=== PATIENT | female | born 1945 | race Caucasian/White ===

== ENCOUNTER 2018-04-29 19:06 | Observation (INO) | payer MEDICARE, SELFPAY ==
[2018-04-29] VITALS (23 sets, daily range): BP systolic 130–171; BP diastolic 49–90; PULSE 73–91; RESP 13–27; TEMP 36.5–37.1; O2SAT 95–100
--- NOTE | 2018-04-29 19:16 | ED.GENADUL_ITS ---
Discharge Plan Discharge Details Chief Complaint: Seizure Reason For Visit: [facility] Primary Care Provider: Mavis,Local ED Provider: Kaylee Null Home Meds and New Rx's Prescriptions: No Action clonazepam 0.5 mg Tablet 0.25 mg PO .QHS RF: 0 lovastatin 40 mg Tablet 40 mg PO DAILY RF: 0 amlodipine 5 mg Tablet 5 mg PO DAILY RF: 0 aspirin [Aspirin Low Dose] 81 mg Tablet,Delayed Release (Dr/Ec) 81 mg PO DAILY RF: 0 ferrous sulfate 325 mg (65 mg iron) Tablet 325 mg PO DAILY RF: 0 metformin 1,000 mg Tablet 1,000 mg PO BID RF: 0 irbesartan-hydrochlorothiazide 300-12.5 mg Tablet 1 tab PO DAILY RF: 0 folic acid 1 mg Tablet 1 mg PO DAILY RF: 0 escitalopram oxalate 10 mg Tablet 5 mg PO DAILY RF: 0 levothyroxine 100 mcg Capsule 100 mcg PO DAILY RF: 0 Medical Decision Making Samatnha Garza is a 72-year-old woman with a history of insulin dependent diabetes presenting to the emergency department with loss of consciousness with shaking at a restaurant without prodrome or postictal state just prior to arrival, now asymptomatic. On exam patient is well and nontoxic appearing. She has benign cardiopulmonary exam and a benign neurologic exam. Concern for new seizure versus syncope of unknown etiology, possible head, C-spine trauma. Exam/history not consistent with sepsis, acute aortic pathology at this time. Plan for EKG, chest x-ray, CT head, C-spine, screening labs, telemetry, IV fluid hydration. Will monitor and reassess. EKG shows long QT at 488. Chest x-ray, CT had nondiagnostic. Mild hypokalemia. Elevated d-dimer, plan for CT chest for rule out PE. Anticipate admission. CT negative for PE. Patient continues to be asymptomatic. Plan for admission. Medical Records Medical records reviewed: Yes I reviewed the patient's medical records. Imaging Data Radiologic Study: Attestation: I personally reviewed and interpreted this imaging study as follows: Radiologist's impression: CT Chest: FINDINGS: Pulmonary arteries: See Adrenals Finding. Aorta: Mild atherosclerotic calcification of the aorta. Other arteries: Small rounded calcified structure in the splenic hilum likely represents a calcified splenic artery aneurysm measuring 1.0 cm (series 5 image 98). Lungs: No focal pulmonary consolidation. Pleural space: Normal. No pneumothorax. No pleural effusion. Heart: Normal heart size without pericardial effusion. There are coronary artery calcifications. Gallbladder and bile ducts: Cholelithiasis. No gallbladder wall thickening or pericholecystic fluid. Adrenals: Mild nodular thickening of the medial limb of the left adrenal gland without discrete nodule. No evidence of pulmonary embolism. Lymph nodes: Scattered nonenlarged mediastinal lymph nodes. No enlarged nodes. Bones/joints: Unremarkable. No acute fracture. Soft tissues: Unremarkable. IMPRESSION: 1. No evidence of pulmonary embolism. No acute pulmonary findings. 2. Cholelithiasis without CT evidence of acute cholecystitis. 3. 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 Brain: FINDINGS: Brain: Mild prominence of the CSF spaces and sulci in keeping with mild age-related involutional changes. Nonspecific patchy and confluent periventricular white matter changes, likely related to chronic microvascular ischemic disease. No intracranial hemorrhage, mass effect, or midline shift. No evidence of large territorial infarction. Right occipital scalp swelling without underlying skull fracture. Bilateral maxillary sinus and mild frontal sinus mucosal thickening. Ventricles: Normal. No ventriculomegaly. Bones/joints: See Brain Finding. Sinuses: See Brain Finding. Mastoid air cells: Normal as visualized. No mastoid effusion. Soft tissues: Normal. IMPRESSION: 1. No acute intracranial findings. 2. Right occipital scalp swelling without underlying skull fracture. 3. Mild age-related involutional changes. Nonspecific white matter changes, likely related to chronic microvascular ischemic disease. 4. Mild paranasal sinus disease. CT Cervical Spine: FINDINGS: Vertebrae: Mild multilevel degenerative changes of the spine with straightening of cervical lordosis. Degenerative changes are worst at C5-C6 and C6-C7. Discs/Spinal canal/Neural foramina: No spinal stenosis. No neural foraminal narrowing. Soft tissues: Right occipital scalp swelling. Lungs: Lung apices are normal. Vasculature: Atherosclerotic calcification of the aorta. IMPRESSION: No acute fracture or malalignment. Mild multilevel degenerative changes of the cervical spine. CXR: FINDINGS: Lungs: Unremarkable. No consolidation. Pleural space: Unremarkable. No pleural effusion. No pneumothorax. Heart/Mediastinum: Unremarkable. No cardiomegaly. Bones/joints: Unremarkable. IMPRESSION: No acute cardiopulmonary findings. Lab Data Lab results reviewed: Yes I reviewed the patient's lab results. 04/29/18 20:17 Urine - Reflex from Ua Urine Culture - Pending Laboratory Tests Range/Units 04/29/18 04/29/18 04/29/18 19:30 19:30 19:30 WBC (4.4-10.8) k/cumm 7.17 RBC (4.00-5.20) m/cumm 4.10 Hgb (12.0-15.5) g/dL 11.8 L Hct (36.0-46.0) % 35.8 L MCV (80-95) fL 87.3 MCH (27.0-33.0) pg 28.8 MCHC (32.0-36.0) g/dL 33.0 RDW (11.7-14.6) % 13.1 Plt Count (130-400) x1000/uL 278 MPV (8.0-11.0) fL 10.0 Immature Gran % 0.1 Neutrophils % 54.6 Lymphocytes % 35.1 Monocytes % 7.0 Eosinophils % 2.5 Basophils % 0.7 Absolute Neutrophils (1.2-6.7) k/cumm 3.91 Absolute Lymphocytes (1.2-3.4) k/cumm 2.52 Absolute Monocytes (0.11-0.7) k/cumm 0.50 Absolute Eosinophils (0.0-0.7) k/cumm 0.18 Absolute Basophils (0.0-0.2) k/cumm 0.05 D-Dimer (<500) ng/mlFEU Sodium (136-145) mmol/L 141 Potassium (3.5-5.1) mmol/L 3.3 L Chloride (98-107) mmol/L 102 Carbon Dioxide (21.0-32.0) mmol/L 27.6 Anion Gap (3-11) mmol/L 11.4 H BUN (7-18) mg/dL 16 Creatinine (0.55-1.02) mg/dL 1.06 H Estimated GFR/1.73 m2 (mL/min/1.73m2) 50.96 Glucose (70-100) mg/dL 83 Calcium (8.5-10.1) mg/dL 8.7 Total Bilirubin (0.2-1.0) mg/dL 0.3 AST (15-37) U/L 17 ALT (12-78) U/L 21 Alkaline Phosphatase (46-116) U/L 78 Troponin I (0.00-0.06) ng/mL < 0.02 Total Protein (6.4-8.2) g/dL 7.2 Albumin (3.4-5.0) g/dL 3.7 TSH (0.358-3.74) uIU/mL 2.41 Urine Color (Yellow) Urine Clarity Urine pH (5-8) Ur Specific [place] (1.005-1.025) Urine Protein (Negative) mg/dL Urine Ketones (Negative) mg/dL Urine Blood (Negative) Urine Nitrite (Negative) Urine Bilirubin (Negative) Urine Urobilinogen (Up TO 0.2) EU/dL Ur Leukocyte Esterase (Negative) Urine RBC (0-2) Urine WBC (0-5) HPF Ur Epithelial Cells (Negative) HPF Urine Crystals (Negative) HPF Urine Bacteria (Negative) HPF Urine Casts (Negative) LPF Urine Mucus (Negative) Urine Other (Negative) Ur Culture Indicated? Urine Glucose (Negative) mg/dL Range/Units 04/29/18 04/29/18 04/29/18 19:30 20:17 23:30 WBC (4.4-10.8) k/cumm RBC (4.00-5.20) m/cumm Hgb (12.0-15.5) g/dL Hct (36.0-46.0) % MCV (80-95) fL MCH (27.0-33.0) pg MCHC (32.0-36.0) g/dL RDW (11.7-14.6) % Plt Count (130-400) x1000/uL MPV (8.0-11.0) fL Immature Gran % Neutrophils % Lymphocytes % Monocytes % Eosinophils % Basophils % Absolute Neutrophils (1.2-6.7) k/cumm Absolute Lymphocytes (1.2-3.4) k/cumm Absolute Monocytes (0.11-0.7) k/cumm Absolute Eosinophils (0.0-0.7) k/cumm Absolute Basophils (0.0-0.2) k/cumm D-Dimer (<500) ng/mlFEU 1163 H Sodium (136-145) mmol/L Potassium (3.5-5.1) mmol/L Chloride (98-107) mmol/L Carbon Dioxide (21.0-32.0) mmol/L Anion Gap (3-11) mmol/L BUN (7-18) mg/dL Creatinine (0.55-1.02) mg/dL Estimated GFR/1.73 m2 (mL/min/1.73m2) Glucose (70-100) mg/dL Calcium (8.5-10.1) mg/dL Total Bilirubin (0.2-1.0) mg/dL AST (15-37) U/L ALT (12-78) U/L Alkaline Phosphatase (46-116) U/L Troponin I (0.00-0.06) ng/mL Cancelled Total Protein (6.4-8.2) g/dL Albumin (3.4-5.0) g/dL TSH (0.358-3.74) uIU/mL Urine Color (Yellow) Yellow Urine Clarity Clear Urine pH (5-8) 7.0 Ur Specific [place] (1.005-1.025) 1.015 Urine Protein (Negative) mg/dL Negative Urine Ketones (Negative) mg/dL Negative Urine Blood (Negative) Negative Urine Nitrite (Negative) Negative Urine Bilirubin (Negative) Negative Urine Urobilinogen (Up TO 0.2) EU/dL 1.0 H Ur Leukocyte Esterase (Negative) Small H Urine RBC (0-2) Negative Urine WBC (0-5) HPF 3-5 Ur Epithelial Cells (Negative) HPF Negative Urine Crystals (Negative) HPF Negative Urine Bacteria (Negative) HPF Negative Urine Casts (Negative) LPF Negative Urine Mucus (Negative) Negative Urine Other (Negative) Negative Ur Culture Indicated? Yes Urine Glucose (Negative) mg/dL Negative ECG Data Attestation: I personally reviewed and interpreted this ECG (s) as follows: Interpretation: EKG shows normal sinus rhythm at 86 with occasional PVC, normal axis, no acute ischemic changes, QTC 488 HPI General Mode of arrival: EMS . Date/Time Provider Initiated Documentation: 04/29/18 19:15 . Limitations to Documentation: no limitations . Information obtained by: patient, EMS, RN notes reviewed and old records reviewed . HPI Narrative: Samantha Garza is a 72-year-old woman with a history of insulin dependent diabetes presenting to the emergency department with apparent seizure. History is provided by the patient and by EMS. EMS reports that patient was at a restaurant eating dinner when she became unresponsive and had generalized body shaking. She was unresponsive for approximately 1 minute. She did fall to the ground from standing. Per EMS, there was no postictal period. She had 2 episodes of vomiting in the restaurant directly after she regained responsiveness. She has never had a seizure in the past. She reports that she has been feeling very well in her usual state of health throughout the day. She remembers being in the restaurant, and then remembers vomiting. She does not recall any prodromal symptoms. Patient received 4 mg of Zofran from EMS in the field. Patient did have one further episode of vomiting in the emergency department. In the emergency department patient reports feeling well in her usual state of health. She is asymptomatic. Never with similar symptoms in the past. No recent illnesses. No recent travel. No changes to her medications. She denies alcohol or recreational drug use. Fingerstick was 112 in the field. Related Data Home Medications Medication Instructions Recorded Confirmed amlodipine 5 mg PO DAILY 04/29/18 04/29/18 aspirin [Aspirin Low Dose] 81 mg PO DAILY 04/29/18 04/29/18 clonazepam 0.25 mg PO .QHS 04/29/18 04/29/18 escitalopram oxalate 5 mg PO DAILY 04/29/18 04/29/18 ferrous sulfate 325 mg PO DAILY 04/29/18 04/29/18 folic acid 1 mg PO DAILY 04/29/18 04/29/18 irbesartan-hydrochlorothiazide 1 tab PO DAILY 04/29/18 04/29/18 levothyroxine 100 mcg PO DAILY 04/29/18 04/29/18 lovastatin 40 mg PO DAILY 04/29/18 04/29/18 metformin 1,000 mg PO BID 04/29/18 04/29/18 Allergies Allergy/AdvReac Type Severity Reaction Status Date / Time No Known Allergies Allergy Unverified 04/29/18 19:50 General Stated Complaint: Seizure NACHO: 2 Review of Systems Review of Systems Constitutional: denies fevers Eyes: denies eye pain ENT: denies facial pain, dental pain, sore throat Cardiovascular: denies chest pain, edema, palpitations Respiratory: denies SOB, cough GI: denies abdominal pain, diarrhea, reports vomiting : denies flank pain MSK: denies back pain, neck pain, arthralgias, myalgias Skin: denies rash Neuro: denies headaches, lightheadedness, weakness, n/t PFSH Diabetes (Chronic) Medical History Diabetes (Chronic) Social History Smoking/Tobacco Use Status: Never alcohol intake: current alcohol intake frequency: holidays/special occasions only Social History Smoking/Tobacco Use Status: Never alcohol intake: current alcohol intake frequency: holidays/special occasions only Exam Narrative Exam Narrative: Constitutional: well and [id number], pleasant, conversing normally HENT: head normocephalic, 3 x 4 cm hematoma right occiput, mucous membranes moist Eyes: conjunctiva normal, sclera normal, pupils 3mm b/l, extraocular movements intact Neck: no stridor, normal ROM, trachea midline, nontender to palpation Chest: normal inspection Resp: normal work of breathing, LCTAB Cardio: normal rate, normal rhythm, no murmur appreciated GI: abdomen soft, non-tender, non-distended Back: normal inspection, no rash Skin: warm, dry, normal color, no rash Neuro: alert, not altered, cranial nerves II through XII intact, motor 5 out of 5 throughout, normal tone Ext: no edema Psych: normal mood, normal affect, normal behavior Course Vital Signs Temperature 36.5 C 04/29/18 19:12 Pulse 88 04/29/18 19:12 Respiratory Rate 21 04/29/18 19:12 Blood Pressure 157/90 H 04/29/18 19:12 Pulse Oximetry 99 04/29/18 19:12 Temperature 36.5 C 04/29/18 19:12 Temperature Source Tympanic 04/29/18 19:12 Pulse 88 04/29/18 19:12 Respiratory Rate 21 04/29/18 19:12 Blood Pressure 157/90 H 04/29/18 19:12 Blood Pressure Position Sitting 04/29/18 19:12 Pulse Oximetry 99 04/29/18 19:12 Oxygen Delivery Method Room Air 04/29/18 19:12 Oxygen Flow Rate 0 04/29/18 19:12 Pain Level 0 04/29/18 19:12
--- NOTE | 2018-04-29 20:06 | DI.RAD_ITS ---
SYMPTOM/DIAGNOSIS: ? SYNCOPE PA AND LATERAL CHEST: The heart size is normal. The aorta is mildly tortuous and shows some calcification. The lungs appear clear. IMPRESSION: No acute abnormality.
[2018-04-29 20:07] LABS: Abs Immature Grans 0.01 k/cumm (0.0-0.09); Absolute Basophil Count 0.05 k/cumm (0.0-0.2); Absolute Eosinophil Count 0.18 k/cumm (0.0-0.7); Absolute Lymphocyte Count 2.52 k/cumm (1.2-3.4); Absolute Neutrophil Count 3.91 k/cumm (1.2-6.7); Basophils % 0.7; Eosinophils % 2.5; HCT 35.8 % (36.0-46.0); HGB 11.8 g/dL (12.0-15.5); Immature Grans % 0.1; Lymphocytes % 35.1; Mean Corpuscular Hemoglobin 28.8 pg (27.0-33.0); Mean Corpuscular Volume 87.3 fL (80-95); Neutrophils % 54.6; Platelet Count 278 x1000/uL (130-400); RBC Distribution Width 13.1 % (11.7-14.6); White Blood Cell Count 7.17 k/cumm (4.4-10.8)
--- NOTE | 2018-04-29 20:11 | DI.CT_ITS ---
SYMPTOM/DIAGNOSIS: TRAUMA, SEIZURE VS SYNCOPE ? NONCONTRAST HEAD CT: No intracranial hemorrhage or skull fracture is seen There is soft tissue swelling over the right occipital region. There is no evidence of infarct or mass. The ventricles are normal in size. There is mild sinus mucosal thickening. IMPRESSION: Right occipital soft tissue swelling. No evidence of fracture or other acute abnormality. CT CERVICAL SPINE: There are degenerative disc changes and facet degenerative changes. There is no evidence of fracture. The alignment appears normal. No paraspinal hematoma seen. No pneumothorax is seen at the lung apices. IMPRESSION: Degenerative changes. No acute abnormality.
[2018-04-29 20:20] LABS: ALT 21 U/L (12-78); AST 17 U/L (15-37); Albumin 3.7 g/dL (3.4-5.0); Alkaline Phosphatase 78 U/L (46-116); Anion Gap 11.4 mmol/L (3-11); BUN 16 mg/dL (7-18); Bilirubin, Total 0.3 mg/dL (0.2-1.0); CO2 27.6 mmol/L (21.0-32.0); CREATININE 1.06 mg/dL (0.55-1.02); Calcium 8.7 mg/dL (8.5-10.1); Chloride 102 mmol/L (98-107); Estimated GFR 50.96 (mL/min/1.73m2); Glucose 83 mg/dL (70-100); Potassium 3.3 mmol/L (3.5-5.1); Sodium 141 mmol/L (136-145); Total Protein 7.2 g/dL (6.4-8.2)
--- NOTE | 2018-04-29 20:28 | DI.VRAD_ITS ---
EXAM: XR Chest, 2 Views EXAM DATE/TIME: 04/29/2018 7:23 PM CLINICAL HISTORY: 72 years old, female; Signs and symptoms; Other: Sycope; Patient HX: ? Syncope TECHNIQUE: XR of the chest, 2 views. COMPARISON: No relevant prior studies available. FINDINGS: Lungs: Unremarkable. No consolidation. Pleural space: Unremarkable. No pleural effusion. No pneumothorax. Heart/Mediastinum: Unremarkable. No cardiomegaly. Bones/joints: Unremarkable. IMPRESSION: No acute cardiopulmonary findings. Dictated and Authenticated by: Renetta Romero MD. Ordering:BLAS MARCANO MD
[2018-04-29 20:31] LABS: TSH (W/Ref FT4) 2.41 uIU/mL (0.358-3.74); Troponin I < 0.02 ng/mL (0.00-0.06)
[2018-04-29 20:47] LABS: D-Dimer 1163 ng/mlFEU (<500)
[2018-04-29 20:49] LABS: Bilirubin Negative (Negative); Blood Negative (Negative); Clarity Clear; Glucose Negative (Negative); Ketones Negative (Negative); Leukocyte Esterase Small (Negative); Nitrite Negative (Negative); Specific Gravity 1.015 (1.005-1.025)
[2018-04-29 20:57] LABS: Bacteria Negative HPF (Negative); C & S Indicated? Yes; Casts Negative LPF (Negative); Crystals Negative HPF (Negative); Epithelial Cells Negative HPF (Negative); Mucus Negative (Negative); Other Cells Negative (Negative); RBC Negative (0-2)
--- NOTE | 2018-04-29 21:00 | DI.VRAD_ITS ---
EXAM: CT Head Without Contrast EXAM DATE/TIME: 04/29/2018 7:32 PM CLINICAL HISTORY: 72 years old, female; Injury or trauma; Fall; Initial encounter; Sprain or strain; Sprain or strain, cervical ligaments; Patient HX: Trauma, seizure vs. Syncope. TECHNIQUE: Axial computed tomography images of the head/brain without contrast. All CT scans at this facility use at least one of these dose optimization techniques: automated exposure control; mA and/or kV adjustment per patient size (includes targeted exams where dose is matched to clinical indication); or iterative reconstruction. Coronal and sagittal reformatted images were created and reviewed. COMPARISON: No relevant prior studies available. FINDINGS: Brain: Mild prominence of the CSF spaces and sulci in keeping with mild age-related involutional changes. Nonspecific patchy and confluent periventricular white matter changes, likely related to chronic microvascular ischemic disease. No intracranial hemorrhage, mass effect, or midline shift. No evidence of large territorial infarction. Right occipital scalp swelling without underlying skull fracture. Bilateral maxillary sinus and mild frontal sinus mucosal thickening. Ventricles: Normal. No ventriculomegaly. Bones/joints: See Brain Finding. Sinuses: See Brain Finding. Mastoid air cells: Normal as visualized. No mastoid effusion. Soft tissues: Normal. IMPRESSION: 1. No acute intracranial findings. 2. Right occipital scalp swelling without underlying skull fracture. 3. Mild age-related involutional changes. Nonspecific white matter changes, likely related to chronic microvascular ischemic disease. 4. Mild paranasal sinus disease. EXAM: CT Cervical Spine Without Contrast EXAM DATE/TIME: 04/29/2018 7:32 PM CLINICAL HISTORY: 72 years old, female; Injury or trauma; Fall; Initial encounter; Sprain or strain; Sprain or strain, cervical ligaments; Patient HX: Trauma, seizure vs. Syncope. TECHNIQUE: Axial computed tomography images of the cervical spine without intravenous contrast. All CT scans at this facility use at least one of these dose optimization techniques: automated exposure control; mA and/or kV adjustment per patient size (includes targeted exams where dose is matched to clinical indication); or iterative reconstruction. Coronal and sagittal reformatted images were created and reviewed. COMPARISON: No relevant prior studies available. FINDINGS: Vertebrae: Mild multilevel degenerative changes of the spine with straightening of cervical lordosis. Degenerative changes are worst at C5-C6 and C6-C7. Discs/Spinal canal/Neural foramina: No spinal stenosis. No neural foraminal narrowing. Soft tissues: Right occipital scalp swelling. Lungs: Lung apices are normal. Vasculature: Atherosclerotic calcification of the aorta. IMPRESSION: No acute fracture or malalignment. Mild multilevel degenerative changes of the cervical spine. Dictated and Authenticated by: Renetta Romero MD. Ordering:BLAS MARCANO MD
--- NOTE | 2018-04-29 21:42 | DI.CT_ITS ---
SYMPTOM/DIAGNOSIS: SYNCOPE, ELEVATED D-DIMER CHEST CT FOR PULMONARY EMBOLISM: CT angiography was performed with multi slice acquisition and multi planar and 3D reconstruction. No pulmonary emboli or aortic dissection is seen. There are some atherosclerotic changes of the aorta but no evidence of an aneurysm. No infiltrate pleural or pericardial effusion seen. A calcified stone is seen in the gallbladder. No biliary dilatation. The visualized portions of the liver, spleen, and pancreas are unremarkable. A small aneurysm is noted of the splenic artery. Osteophytes are noted in the thoracic spine. IMPRESSION: No evidence of pulmonary emboli or other acute abnormality.
[2018-04-29] MEDS: Omnipaque 350 MG/ML 100 ML BTL 74 ML IJ (21:47)
--- NOTE | 2018-04-29 22:01 | HPE_ITS ---
Date of service: 04/29/18 Time of Service: 21:57 Assessment and Plan (1) Spell of altered consciousness: Current visit: Yes Status: Acute Spell, seizure versus syncope the the immediately preceding behavioral changes prior to the loss of consciousness along, obviously, with the clonic activity would make seizure in my opinion the leading diagnostic possibility here. Arguing against this perhaps is that there was no clear postictal state. Complicating the matter further is that there was evident head trauma which could have introduced a second factor. I would monitor on telemetry over, institute seizure precautions and, if no diagnosis forthcoming, proceed with MRI and EEG. We will otherwise continue usual medications as is. History of Present Illness Chief Complaint: Spell Narrative: Patient is a 72-year-old female who suffered a spell at the restaurant this evening she had been in her usual state of health. At the end of the meal she was handed the bill and started asking where the total was. This was considered odd by her as the total was clearly written on the bill she then started looking around at the ceiling in a distracted sort of way. She then stood up and fell to the floor. On the floor she had rhythmic jerking motions of the extremities lasting approximately a minute there was no tongue biting and no urinary incontinence when she came to she vomited and thereafter she was more or less alert though not very talkative, but was able to state her name and where she was clearly she was brought to the emergency room. In the emergency room head CT and EKG unremarkable. She was admitted for further evaluation and management. Patient is unable to provide any history at all, the first thing she remembers was being on the floor. The above history was provided by her who was present at the scene. Past medical history: Hypertension diabetes hypothyroid depression. Allergies: None known. Medications: Norvasc 5 daily, aspirin 81 daily, Klonopin 0.25 at bedtime, citalopram 5 daily, iron 325 daily, folic acid 1 mg daily, losartan/ hydrochlorothiazide daily Synthroid 100 mcg daily lovastatin 40 daily metformin 1000 twice daily Physical exam: Blood pressure 166/55, pulse 78 respiration 13. There HEENT there is an occipital abrasion at approximately 4 cm hematoma neck supple. Lungs clear. Heart regular rate and rhythm without murmurs rubs or gallops. Abdomen is soft and nontender. Pelvic and rectal exams deferred. Extremities without cyanosis clubbing or edema, pulses 2+ and equal. Neurological exam patient is alert and oriented x3. Extraocular movements intact, pupils equal round and reactive to light. No facial asymmetry motor exam 5/5 throughout. When Lab White count 7.1, hematocrit 35 platelet 278 d-dimer 1163 sodium 141 potassium 3.3 chloride 102 bicarb 27 BUN 16 creatinine 1.0 glucose 83 troponin negative. EKG shows normal sinus rhythm, within normal limits except for a slightly prolonged QTC at [address] unremarkable Review of Systems Review of Systems All systems reviewed & are unremarkable except as noted in HPI and below PFSH Diabetes (Chronic) Medical History Diabetes (Chronic) Social History Smoking/Tobacco Use Status: Never alcohol intake: current alcohol intake frequency: holidays/special occasions only Social History Smoking/Tobacco Use Status: Never alcohol intake: current alcohol intake frequency: holidays/special occasions only Meds Home Medications Medication Instructions Recorded Confirmed Type amlodipine 5 mg PO DAILY 04/29/18 04/29/18 History aspirin [Aspirin Low Dose] 81 mg PO DAILY 04/29/18 04/29/18 History clonazepam 0.25 mg PO .QHS 04/29/18 04/29/18 History escitalopram oxalate 5 mg PO DAILY 04/29/18 04/29/18 History ferrous sulfate 325 mg PO DAILY 04/29/18 04/29/18 History folic acid 1 mg PO DAILY 04/29/18 04/29/18 History irbesartan-hydrochlorothiazide 1 tab PO DAILY 04/29/18 04/29/18 History levothyroxine 100 mcg PO DAILY 04/29/18 04/29/18 History lovastatin 40 mg PO DAILY 04/29/18 04/29/18 History metformin 1,000 mg PO BID 04/29/18 04/29/18 History Allergies Allergy/AdvReac Type Severity Reaction Status Date / Time No Known Allergies Allergy Unverified 04/29/18 19:50 Exam Narrative Exam Narrative: per hpi Results Labs : 04/29/18 19:30 04/29/18 19:30 Laboratory Results - last 24 hr 04/29/18 04/29/18 04/29/18 19:30 19:30 19:30 WBC 7.17 RBC 4.10 Hgb 11.8 L Hct 35.8 L MCV 87.3 MCH 28.8 MCHC 33.0 RDW 13.1 Plt Count 278 MPV 10.0 Immature Gran % 0.1 Neutrophils % 54.6 Lymphocytes % 35.1 Monocytes % 7.0 Eosinophils % 2.5 Basophils % 0.7 Absolute Neutrophils 3.91 Absolute Lymphocytes 2.52 Absolute Monocytes 0.50 Absolute Eosinophils 0.18 Absolute Basophils 0.05 D-Dimer Sodium 141 Potassium 3.3 L Chloride 102 Carbon Dioxide 27.6 Anion Gap 11.4 H BUN 16 Creatinine 1.06 H Estimated GFR/1.73 m2 50.96 Glucose 83 Calcium 8.7 Total Bilirubin 0.3 AST 17 ALT 21 Alkaline Phosphatase 78 Troponin I < 0.02 Total Protein 7.2 Albumin 3.7 TSH 2.41 Urine Color Urine Clarity Urine pH Ur Specific [place] Urine Protein Urine Ketones Urine Blood Urine Nitrite Urine Bilirubin Urine Urobilinogen Ur Leukocyte Esterase Urine RBC Urine WBC Ur Epithelial Cells Urine Crystals Urine Bacteria Urine Casts Urine Mucus Urine Other Ur Culture Indicated? Urine Glucose 04/29/18 04/29/18 19:30 20:17 WBC RBC Hgb Hct MCV MCH MCHC RDW Plt Count MPV Immature Gran % Neutrophils % Lymphocytes % Monocytes % Eosinophils % Basophils % Absolute Neutrophils Absolute Lymphocytes Absolute Monocytes Absolute Eosinophils Absolute Basophils D-Dimer 1163 H Sodium Potassium Chloride Carbon Dioxide Anion Gap BUN Creatinine Estimated GFR/1.73 m2 Glucose Calcium Total Bilirubin AST ALT Alkaline Phosphatase Troponin I Total Protein Albumin TSH Urine Color Yellow Urine Clarity Clear Urine pH 7.0 Ur Specific [place] 1.015 Urine Protein Negative Urine Ketones Negative Urine Blood Negative Urine Nitrite Negative Urine Bilirubin Negative Urine Urobilinogen 1.0 H Ur Leukocyte Esterase Small H Urine RBC Negative Urine WBC 3-5 Ur Epithelial Cells Negative Urine Crystals Negative Urine Bacteria Negative Urine Casts Negative Urine Mucus Negative Urine Other Negative Ur Culture Indicated? Yes Urine Glucose Negative Last Vital Signs Temp 36.5 C 04/29/18 19:12 Pulse 82 04/29/18 20:31 Resp 13 04/29/18 20:50 BP 166/55 H 04/29/18 20:31 Pulse Ox 97 04/29/18 20:50
--- NOTE | 2018-04-29 22:06 | DI.VRAD_ITS ---
EXAM: CT Angiography Chest With Contrast EXAM DATE/TIME: 04/29/2018 9:03 PM CLINICAL HISTORY: 72 years old, female; Abnormal findings; Abnormal diagnostic tests; Elevated d-dimer TECHNIQUE: Axial computed tomographic angiography images of the chest with intravenous contrast using CT angiography protocol. All CT scans at this facility use at least one of these dose optimization techniques: automated exposure control; mA and/or kV adjustment per patient size (includes targeted exams where dose is matched to clinical indication); or iterative reconstruction. Coronal and sagittal reformatted images were created and reviewed. MIP reconstructed images were created and reviewed. CONTRAST: 74 ml of OMNI-PAQUE 350 administered intravenously. COMPARISON: CR XR CHEST 2V PA LATERAL 04/29/2018 8:02 PM FINDINGS: Pulmonary arteries: See Adrenals Finding. Aorta: Mild atherosclerotic calcification of the aorta. Other arteries: Small rounded calcified structure in the splenic hilum likely represents a calcified splenic artery aneurysm measuring 1.0 cm (series 5 image 98). Lungs: No focal pulmonary consolidation. Pleural space: Normal. No pneumothorax. No pleural effusion. Heart: Normal heart size without pericardial effusion. There are coronary artery calcifications. Gallbladder and bile ducts: Cholelithiasis. No gallbladder wall thickening or pericholecystic fluid. Adrenals: Mild nodular thickening of the medial limb of the left adrenal gland without discrete nodule. No evidence of pulmonary embolism. Lymph nodes: Scattered nonenlarged mediastinal lymph nodes. No enlarged nodes. Bones/joints: Unremarkable. No acute fracture. Soft tissues: Unremarkable. IMPRESSION: 1. No evidence of pulmonary embolism. No acute pulmonary findings. 2. Cholelithiasis without CT evidence of acute cholecystitis. 3. 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 Dictated and Authenticated by: Renetta Romero MD. Ordering:BLAS MARCANO MD
[2018-04-29] MEDS: Potassium Chloride 20 MEQ TABCR PO (23:59)
[2018-04-30] VITALS (9 sets, daily range): BP systolic 128–138; BP diastolic 62–78; PULSE 58–76; RESP 16–18; TEMP 36.8–37.7; O2SAT 96–98
[2018-04-30] MEDS: Acetaminophen 500 MG TAB 1000 MG PO ×2 (00:08→19:32)
[2018-04-30] MEDS: Normal Saline Flush 10 ML SYR IVP (00:09)
[2018-04-30 06:52] LABS: Potassium 3.5 mmol/L (3.5-5.1)
[2018-04-30] MEDS: Levothyroxine 100 MCG TAB PO (07:13)
--- NOTE | 2018-04-30 08:16 | PDOC.CMIN ---
Care Management Initial Assess REASON FOR HOSPITALIZATION:: Loss of consiousness PAST MEDICAL HISTORY/PAST SURGICAL HISTORY:: Diabetes, loss of consiousness PREVIOUS FUNCTIONAL STATUS/SOCIAL/FAMILY SUPPORTS:: Samantha resides in [place], [place] with her , Dwain. The couple is retired with three children, nine grandchildren and two great grandchildren. Samantha reports an extensive support network of family and friends in her community of [place], [place] which is near [place], [place]. 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 She reports enjoying fci and does not struggle to stay busy. At baseline, she is independent with ADLs in the community. CURRENT FUNCTIONAL STATUS:: Samantha is lying in bed, forthcoming with information and pleasant in interaction. ADVANCE DIRECTIVES:: None on file at [facility]. Has patient been provided with information about the portal?: No Did the patient sign up for the portal?: No CODE STATUS:: Full Code INSURANCE COVERAGE / FINANCIAL ISSUES:: Medicare. AARP CURRENT HOME/COMMUNITY SERVICES/EQUIPMENT:: Glucometer, hand held shower, shower bench PRIMARY CARE PHYSICIAN:: No local. POTENTIAL DISCHARGE NEEDS:: Evaluation for further needs; possible transfer coordination. PATIENT/FAMILY EDUCATION NEEDS:: Review of discharge instructions, discuss follow up plan-self care needs upon discharge. ANTICIPATED BARRIERS TO DISCHARGE:: None identifed. TRANSPORTATION:: Via private vehicle with her . PLAN:: If determined stable, Samantha will discharge home once medically cleared per MD. She will follow up with community providers where she resides. She will transport via private vehicle with her , Dwain. Per MD, if Samantha requires-she will be transferred to tertiary center and transport via EMS--plan dependent on continued results.
--- NOTE | 2018-04-30 08:21 | INITIAL_ITS ---
Care Management Initial Assess REASON FOR HOSPITALIZATION:: Loss of consiousness PAST MEDICAL HISTORY/PAST SURGICAL HISTORY:: Diabetes, loss of consiousness PREVIOUS FUNCTIONAL STATUS/SOCIAL/FAMILY SUPPORTS:: Samantha resides in [place], [place] with her , Dwain. The couple is retired with three children, nine grandchildren and two great grandchildren. Samantha reports an extensive support network of family and friends in her community of [place], [place] which is near [place], [place]. 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 At baseline, she is independent with ADLs in the community. CURRENT FUNCTIONAL STATUS:: Samantha is lying in bed, forthcoming with information and pleasant in interaction. ADVANCE DIRECTIVES:: None on file at [facility]. Has patient been provided with information about the portal?: No Did the patient sign up for the portal?: No CODE STATUS:: Full Code INSURANCE COVERAGE / FINANCIAL ISSUES:: Medicare. AARP CURRENT HOME/COMMUNITY SERVICES/EQUIPMENT:: Glucometer, hand held shower, shower bench PRIMARY CARE PHYSICIAN:: No local. POTENTIAL DISCHARGE NEEDS:: Evaluation for further needs; possible transfer coordination. PATIENT/FAMILY EDUCATION NEEDS:: Review of discharge instructions, discuss follow up plan-self care needs upon discharge. ANTICIPATED BARRIERS TO DISCHARGE:: None identifed. TRANSPORTATION:: Via private vehicle with her . PLAN:: If determined stable, Samantha will discharge home once medically cleared per MD. She will follow up with community providers where she resides. She will transport via private vehicle with her , Dwain. Per MD, if Samantha requires-she will be transferred to tertiary center and transport via EMS--plan dependent on continued results.
[2018-04-30] MEDS: Insulin Aspart 300 UNITS/3 ML PEN SC (09:15)
[2018-04-30] MEDS: Escitalopram 10 MG TAB 5 MG PO (09:16)
[2018-04-30] MEDS: Enoxaparin 40 MG/0.4 ML SYR SC (09:16)
[2018-04-30] MEDS: Aspirin E.C. 81 MG TABEC PO (09:16)
[2018-04-30] MEDS: Folic Acid 1 MG TAB PO (09:16)
[2018-04-30] MEDS: Ferrous Sulfate 325 MG TAB PO (09:16)
[2018-04-30] MEDS: Potassium Chloride 20 MEQ TABCR 40 MEQ PO (09:16)
[2018-04-30] MEDS: Metoprolol 12.5 MG TAB PO ×2 (09:17→19:30)
[2018-04-30] MEDS: amLODIPine 5 MG TAB PO (09:17)
[2018-04-30 11:03] LABS: Troponin I 0.12 ng/mL (0.00-0.06)
--- NOTE | 2018-04-30 11:21 | PHARADMIT ---
Admission Pharmacy Clinical Review LOSS of CONCIOUSNESS ( Seizure) Code Status Full Code Current Weight Wgt- 77.6 kg Renally Cleared and Narrow Therapeutic Index Meds CrCl~ 43.1 mL/min Meds-OK QTc Value / Action Taken QTc-467 BP Control, Fever BP- 138/78 Tmax- 37.1C Electrolytes reviewed Na- 141 K+3.5 Mag-2.0 DVT Prophylaxis Lovenox Opiate Usage / Scheduled Bowel Regimen Ordered No No Plt/SCr for Heparin / Enoxaparin Plts-278 SCr- 1.06 INR for Warfarin na H/H stable, WBC/Bands H&H- 11.8/35.8 WBC- 7.17 Antibiotic appropriateness none Cultures and Sensitivities Urine- mixed ade Surgical ABX d/c within 24 hr na DM control / Insulin Dosing BG- 83 Aspart Heart Failure (Check EF%) (NICK's, B-Block, Diuretics) Norvasc ,Lopresor, IV to PO Switch No Home Meds Reviewed Yes Home Meds Not Ordered Irbesartan/HCTZ-on Hold, Metformin Comments Troponins: 0.02 ^ 0.12
[2018-04-30 12:34] LABS: Troponin I 0.04 ng/mL (0.00-0.06)
--- NOTE | 2018-04-30 13:39 | PGE_ITS ---
Date of Service Date of service: 04/30/18 Time of Service: 13:32 Assessment and Plan (1) Spell of altered consciousness: Current visit: Yes Status: Acute Unclear etiology for what appears to have been a Transient Loss of Consciousness with potential brief period of seizure activity following. Currently without evidence of infection, and likely not orthostatic in nature. Discussed case in detail with Neurology at [facility]. Given history patient's symptoms may represent a Syncopal episode with an Impact Seizure due to striking her head, which according to the was quite 'hard'. However, cannot rule out a convulsive syncope or other etiology. Given minimal and equivocal elevation in troponin, symptoms may have represented a cardiac arrhythmia, manifesting with slight confusion from hypoperfusion prior to the event, with syncope at attempt on standing and potential seizure activity due to lack of perfusion of the brain following the event. Currently maintained on tele without any abnormalities. Unfortunately as it is currently Wednesday work- up is limited. - Will plan on one additional night and day in the hospital for further monitoring by telemetry to rule out any cardiac arrhythmias, with a ZIO patch on discharge. - If no further symptoms and nothing on telemetry safe to discharge as per neurology conversation, with timely work-up to include MRI of the brain, EEG, and ECHO, which can all be acquired as an outpatient. Although ACS is less likely will also recommend stress testing given minimal and equivocal elevation in troponin. (2) Elevated troponin: Current visit: Yes Status: Acute Minimal and equivocal elevation which has completely normalized without intervention. Doubt NSTEMI. May be on basis of arrhythmia given above history, but given EKG findings cannot rule out underlying CAD. Will recommend outpatient ischemic work-up. Change HCTZ/ARB combination to low dose BB and monitor HR closely. Continue ASA, statin as well. (3) Hypertension: Current visit: Yes Status: Chronic Continue CCB and low dose BB, with ARB/HCTZ on hold as above. (4) Anxiety: Current visit: Yes Status: Chronic Continue SSRI therapy, low dose Klonopin. (5) DVT prophylaxis: Current visit: Yes Status: Acute Initiate Lovenox. Subjective Interval history since last seen: Very pleasant 72 year old woman with a prior history of Hypertension, Depression, and Anxiety admitted from [facility] Emergency Department on 04/29 following an altered mental status with Transient Loss of Consciousness with potential seizure activity. Mrs. Garza is originally from [facility], and was visiting with her and having dinner at a local restaurant. The patient was noted to have a brief episode of confusion, specifically noting that their bill was not totaled, and then staring around the room and ceiling as if 'looking at a fly moving across the room'. The patient then went to stand, fell to the ground and struck her head on the table along the way, and was then noted to have rhythmic jerking type motions of her lower extremities as well as some tremors in the upper extremities. There was no biting of the tongue or incontinence of bladder or bowel. Upon regaining consciousness the patient had a bout of vomiting, but did not suffer from any confusion. Work-up in the ED showed no evidence of fever, leukocytosis, or significant laboratory abnormalities. Imaging with CXR, CT of the Head, and CT Angio of the chest were all negative for any acute findings. Her troponin briefly became elevated in the equivocal range at 0.12 prior to normalizing. No other events reported. She is at her baseline mental status currently. Exam Narrative Exam Narrative: General: Patient appears comfortable, AAOX3, NAD Neck: Supple CV: Regular, nontachycardic, S1S2, No rubs, murmurs, or gallops. Pulmonary: Clear to auscultation bilaterally, no crackles, wheezing, or rhonchi Abdomen: + Bowel Sounds, soft, nontender, nondistended Vascular: No lower extremity edema Neurologic: CN II-XII grossly intact. No focal deficits. Psych: Normal mood and affect. Objective Objective Clinical Data: Abnormal lab results 04/29/18 04/29/18 04/29/18 Range/Units 19:30 19:30 19:30 Hgb 11.8 L (12.0-15.5) g/dL Hct 35.8 L (36.0-46.0) % D-Dimer 1163 H (<500) ng/mlFEU Potassium 3.3 L (3.5-5.1) mmol/L Anion Gap 11.4 H (3-11) mmol/L Creatinine 1.06 H (0.55-1.02) mg/dL Troponin I (0.00-0.06) ng/mL Urine Urobilinogen (Up TO 0.2) EU/dL Ur Leukocyte Esterase (Negative) 04/29/18 04/30/18 Range/Units 20:17 06:00 Hgb (12.0-15.5) g/dL Hct (36.0-46.0) % D-Dimer (<500) ng/mlFEU Potassium (3.5-5.1) mmol/L Anion Gap (3-11) mmol/L Creatinine (0.55-1.02) mg/dL Troponin I 0.12 H (0.00-0.06) ng/mL Urine Urobilinogen 1.0 H (Up TO 0.2) EU/dL Ur Leukocyte Esterase Small H (Negative) Vital Signs Temperature 36.8 C 04/30/18 07:15 Temperature Source Tympanic 04/30/18 07:15 Pulse 58 L 04/30/18 07:33 Pulse Rhythm Regular 04/30/18 12:56 Pulse 76 04/29/18 22:31 Respiratory Rate 16 04/30/18 07:15 Respiratory Effort 04/30/18 12:56 Respiratory Depth Normal 04/30/18 12:56 Respiratory Pattern Normal 04/30/18 12:56 Blood Pressure 138/78 04/30/18 07:15 Blood Pressure Mean 74 04/29/18 22:31 Blood Pressure Position Sitting 04/29/18 19:12 Pulse Oximetry 97 04/30/18 07:45 Oxygen Delivery Method Room Air 04/30/18 07:45 Oxygen Flow Rate 0 04/30/18 07:45 Pain Level 5 04/30/18 00:08 Intake & Output 04/29/18 04/30/18 04/30/18 23:59 11:59 23:59 Intake Total 200 / 200 Output Total 300 / 300 2099 Balance -100 / -100 -2100 / -2100 Weight 77.6 kg Intake: Oral 200 / 200 Output: Urine 300 / 300 2099 Other: Urine Color Yellow Yellow Urine Appearance Clear Clear Clear Urine Odor None Normal Voiding Methods Toilet Toilet Laboratory Results WBC 7.17 k/cumm (4.4-10.8) 04/29/18 19:30 RBC 4.10 m/cumm (4.00-5.20) 04/29/18 19:30 Hgb 11.8 g/dL (12.0-15.5) L 04/29/18 19:30 Hct 35.8 % (36.0-46.0) L 04/29/18 19:30 MCV 87.3 fL (80-95) 04/29/18 19:30 MCH 28.8 pg (27.0-33.0) 04/29/18 19:30 MCHC 33.0 g/dL (32.0-36.0) 04/29/18 19:30 RDW 13.1 % (11.7-14.6) 04/29/18 19:30 Plt Count 278 x1000/uL (130-400) 04/29/18 19:30 MPV 10.0 fL (8.0-11.0) 04/29/18 19:30 Immature Gran % 0.1 04/29/18 19:30 Neutrophils % 54.6 04/29/18 19:30 Lymphocytes % 35.1 04/29/18 19:30 Monocytes % 7.0 04/29/18 19:30 Eosinophils % 2.5 04/29/18 19:30 Basophils % 0.7 04/29/18 19:30 Absolute Neutrophils 3.91 k/cumm (1.2-6.7) 04/29/18 19:30 Absolute Lymphocytes 2.52 k/cumm (1.2-3.4) 04/29/18 19:30 Absolute Monocytes 0.50 k/cumm (0.11-0.7) 04/29/18 19:30 Absolute Eosinophils 0.18 k/cumm (0.0-0.7) 04/29/18 19:30 Absolute Basophils 0.05 k/cumm (0.0-0.2) 04/29/18 19:30 D-Dimer 1163 ng/mlFEU (<500) H 04/29/18 19:30 Sodium 141 mmol/L (136-145) 04/29/18 19:30 Potassium 3.5 mmol/L (3.5-5.1) 04/30/18 06:00 Chloride 102 mmol/L (98-107) 04/29/18 19:30 Carbon Dioxide 27.6 mmol/L (21.0-32.0) 04/29/18 19:30 Anion Gap 11.4 mmol/L (3-11) H 04/29/18 19:30 BUN 16 mg/dL (7-18) 04/29/18 19:30 Creatinine 1.06 mg/dL (0.55-1.02) H 04/29/18 19:30 Estimated GFR/1.73 m2 50.96 (mL/min/1.73m2) 04/29/18 19:30 Glucose 83 mg/dL (70-100) 04/29/18 19:30 Calcium 8.7 mg/dL (8.5-10.1) 04/29/18 19:30 Magnesium 2.0 mg/dL (1.8-2.4) 04/30/18 06:00 Total Bilirubin 0.3 mg/dL (0.2-1.0) 04/29/18 19:30 AST 17 U/L (15-37) 04/29/18 19:30 ALT 21 U/L (12-78) 04/29/18 19:30 Alkaline Phosphatase 78 U/L (46-116) 04/29/18 19:30 Troponin I 0.04 ng/mL (0.00-0.06) 04/30/18 11:45 Total Protein 7.2 g/dL (6.4-8.2) 04/29/18 19:30 Albumin 3.7 g/dL (3.4-5.0) 04/29/18 19:30 TSH 2.41 uIU/mL (0.358-3.74) 04/29/18 19:30 Urine Color Yellow (Yellow) 04/29/18 20:17 Urine Clarity Clear 04/29/18 20:17 Urine pH 7.0 (5-8) 04/29/18 20:17 Ur Specific [place] 1.015 (1.005-1.025) 04/29/18 20:17 Urine Protein Negative mg/dL (Negative) 04/29/18 20:17 Urine Ketones Negative mg/dL (Negative) 04/29/18 20:17 Urine Blood Negative (Negative) 04/29/18 20:17 Urine Nitrite Negative (Negative) 04/29/18 20:17 Urine Bilirubin Negative (Negative) 04/29/18 20:17 Urine Urobilinogen 1.0 EU/dL (Up TO 0.2) H 04/29/18 20:17 Ur Leukocyte Esterase Small (Negative) H 04/29/18 20:17 Urine RBC Negative (0-2) 04/29/18 20:17 Urine WBC 3-5 HPF (0-5) 04/29/18 20:17 Ur Epithelial Cells Negative HPF (Negative) 04/29/18 20:17 Urine Crystals Negative HPF (Negative) 04/29/18 20:17 Urine Bacteria Negative HPF (Negative) 04/29/18 20:17 Urine Casts Negative LPF (Negative) 04/29/18 20:17 Urine Mucus Negative (Negative) 04/29/18 20:17 Urine Other Negative (Negative) 04/29/18 20:17 Ur Culture Indicated? Yes 04/29/18 20:17 Urine Glucose Negative mg/dL (Negative) 04/29/18 20:17 Objective Narrative Objective Narrative: EXAM: CT Angiography Chest With Contrast EXAM DATE/TIME: 04/29/2018 9:03 PM CLINICAL HISTORY: 72 years old, female; Abnormal findings; Abnormal diagnostic tests; Elevated d-dimer TECHNIQUE: Axial computed tomographic angiography images of the chest with intravenous contrast using CT angiography protocol. All CT scans at this facility use at least one of these dose optimization techniques: automated exposure control; mA and/or kV adjustment per patient size (includes targeted exams where dose is matched to clinical indication); or iterative reconstruction. Coronal and sagittal reformatted images were created and reviewed. MIP reconstructed images were created and reviewed. CONTRAST: 74 ml of OMNI-PAQUE 350 administered intravenously. COMPARISON: CR XR CHEST 2V PA LATERAL 04/29/2018 8:02 PM FINDINGS: Pulmonary arteries: See Adrenals Finding. Aorta: Mild atherosclerotic calcification of the aorta. Other arteries: Small rounded calcified structure in the splenic hilum likely represents a calcified splenic artery aneurysm measuring 1.0 cm (series 5 image 98). Lungs: No focal pulmonary consolidation. Pleural space: Normal. No pneumothorax. No pleural effusion. Heart: Normal heart size without pericardial effusion. There are coronary artery calcifications. Gallbladder and bile ducts: Cholelithiasis. No gallbladder wall thickening or pericholecystic fluid. Adrenals: Mild nodular thickening of the medial limb of the left adrenal gland without discrete nodule. No evidence of pulmonary embolism. Lymph nodes: Scattered nonenlarged mediastinal lymph nodes. No enlarged nodes. Bones/joints: Unremarkable. No acute fracture. Soft tissues: Unremarkable. IMPRESSION: 1. No evidence of pulmonary embolism. No acute pulmonary findings. 2. Cholelithiasis without CT evidence of acute cholecystitis. 3. 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 Dictated and Authenticated by: Renetta Romero MD. EXAM DATE/TIME: 04/29/2018 7:32 PM CLINICAL HISTORY: 72 years old, female; Injury or trauma; Fall; Initial encounter; Sprain or strain; Sprain or strain, cervical ligaments; Patient HX: Trauma, seizure vs. Syncope. TECHNIQUE: Axial computed tomography images of the head/brain without contrast. All CT scans at this facility use at least one of these dose optimization techniques: automated exposure control; mA and/or kV adjustment per patient size (includes targeted exams where dose is matched to clinical indication); or iterative reconstruction. Coronal and sagittal reformatted images were created and reviewed. COMPARISON: No relevant prior studies available. FINDINGS: Brain: Mild prominence of the CSF spaces and sulci in keeping with mild age-related involutional changes. Nonspecific patchy and confluent periventricular white matter changes, likely related to chronic microvascular ischemic disease. No intracranial hemorrhage, mass effect, or midline shift. No evidence of large territorial infarction. Right occipital scalp swelling without underlying skull fracture. Bilateral maxillary sinus and mild frontal sinus mucosal thickening. Ventricles: Normal. No ventriculomegaly. Bones/joints: See Brain Finding. Sinuses: See Brain Finding. Mastoid air cells: Normal as visualized. No mastoid effusion. Soft tissues: Normal. IMPRESSION: 1. No acute intracranial findings. 2. Right occipital scalp swelling without underlying skull fracture. 3. Mild age-related involutional changes. Nonspecific white matter changes, likely related to chronic microvascular ischemic disease. 4. Mild paranasal sinus disease. Exam(s) EXAM: XR Chest, 2 Views EXAM DATE/TIME: 04/29/2018 7:23 PM CLINICAL HISTORY: 72 years old, female; Signs and symptoms; Other: Sycope; Patient HX: ? Syncope TECHNIQUE: XR of the chest, 2 views. COMPARISON: No relevant prior studies available. FINDINGS: Lungs: Unremarkable. No consolidation. Pleural space: Unremarkable. No pleural effusion. No pneumothorax. Heart/Mediastinum: Unremarkable. No cardiomegaly. Bones/joints: Unremarkable. IMPRESSION: No acute cardiopulmonary findings.
[2018-04-30] MEDS: Potassium Chloride 10 MEQ TABCR PO (16:06)
[2018-04-30] MEDS: Lovastatin 40 MG TAB PO (19:30)
[2018-05-01] MEDS: Levothyroxine 100 MCG TAB PO (06:09)
[2018-05-01 07:08] LABS: Abs Immature Grans 0.01 k/cumm (0.0-0.09); Absolute Basophil Count 0.05 k/cumm (0.0-0.2); Absolute Eosinophil Count 0.11 k/cumm (0.0-0.7); Absolute Monocyte Count 0.58 k/cumm (0.11-0.7); Absolute Neutrophil Count 3.53 k/cumm (1.2-6.7); Basophils % 0.8; Eosinophils % 1.8; HCT 35.8 % (36.0-46.0); HGB 11.4 g/dL (12.0-15.5); Immature Grans % 0.2; Lymphocytes % 30.7; Mean Corp. HGB Concentration 31.8 g/dL (32.0-36.0); Mean Corpuscular Hemoglobin 28.2 pg (27.0-33.0); Mean Corpuscular Volume 88.6 fL (80-95); Mean Platelet Volume 9.3 fL (8.0-11.0); Monocytes % 9.4; Neutrophils % 57.1; Platelet Count 274 x1000/uL (130-400); RBC 4.04 m/cumm (4.00-5.20); RBC Distribution Width 13.2 % (11.7-14.6); White Blood Cell Count 6.18 k/cumm (4.4-10.8)
[2018-05-01 07:17] LABS: Anion Gap 9.1 mmol/L (3-11); BUN 15 mg/dL (7-18); CO2 26.9 mmol/L (21.0-32.0); CREATININE 1.03 mg/dL (0.55-1.02); Calcium 8.7 mg/dL (8.5-10.1); Chloride 104 mmol/L (98-107); Estimated GFR 52.67 (mL/min/1.73m2); Glucose 156 mg/dL (70-100); Magnesium 1.9 mg/dL (1.8-2.4); Potassium 4.1 mmol/L (3.5-5.1); Sodium 140 mmol/L (136-145)
[2018-05-01 07:20] VITALS: PULSE 58
[2018-05-01 07:55] VITALS: BP 134/60; PULSE 61; RESP 16; TEMP 37; O2SAT 96
[2018-05-01] MEDS: Enoxaparin 40 MG/0.4 ML SYR SC (08:02)
[2018-05-01] MEDS: Escitalopram 10 MG TAB 5 MG PO (08:03)
[2018-05-01] MEDS: Ferrous Sulfate 325 MG TAB PO (08:04)
[2018-05-01] MEDS: Metoprolol 12.5 MG TAB PO (08:04)
[2018-05-01] MEDS: Folic Acid 1 MG TAB PO (08:04)
[2018-05-01] MEDS: amLODIPine 5 MG TAB PO (08:04)
[2018-05-01] MEDS: Aspirin E.C. 81 MG TABEC PO (08:04)
[2018-05-01] MEDS: Insulin Aspart 300 UNITS/3 ML PEN SC ×2 (08:05→12:12)
--- NOTE | 2018-05-01 08:07 | PDOC.CMDIS ---
LACE Index Scoring Tool - Questions: Length of Stay (in days): 3 Acuity (Admit via E.D.?): Yes Comorbidities: Diabetes w/o Complication E.D. Visits: 1 - Answers: Total Score: 8 Risk of Readmission: Low Risk Care Management Discharge Reason for Hospitalization: Loss of consiousness Discharge Plan: Samantha will discharge home once medically cleared per MD. She will have Ziopatch placed by RT and follow up with outpatient providers where she resides--including MPI, EEG, MRI and ECHO per MD. She will transport via private vehicle with her , Dwain. Patient/Family Education Needs: Review of discharge instructions, discuss Ask Me Three. Review of contact information for outreach if needed.
[2018-05-01 09:35] VITALS: O2SAT 95
--- NOTE | 2018-05-01 11:31 | DSE_ITS ---
DS: Diagnosis Discharge Diagnosis (1) Spell of altered consciousness: Status: Acute (2) Elevated troponin: Status: Acute Discharge Plan Disposition Patient Disposition: HOME Condition: Stable Discharge Details Reason For Visit: LOSS OF CONCIOUSNESS Admit Date/Time: 04/29/18 22:14 Admit Provider: Nestor Marin Attending Provider: Nestor Marin Primary Care Provider: Mavis,Local Hospital Course Hospital Course: CC: Transient Loss of Consciousness HPI: Very pleasant 72 year old woman with a prior history of Hypertension, Depression , and Anxiety admitted from [facility] Emergency Department on 04/29 following an altered mental status with Transient Loss of Consciousness with potential subsequent seizure activity. Mrs. Garza is originally from [facility], and was visiting the area with her and having dinner at a local restaurant. The patient was noted to have a brief episode of confusion, specifically noting that their bill was not totaled, and then staring around the room and ceiling as if 'looking at a fly moving across the room' as per history provided by the . The patient then went to stand, fell to the ground and struck her head on the table along the way, and was then noted to have rhythmic jerking type motions of her lower extremities as well as some tremors in the upper extremities. There was no biting of the tongue or incontinence of bladder or bowel. Upon regaining consciousness the patient had a bout of vomiting, but did not suffer from any confusion. Work-up in the ED showed no evidence of fever, leukocytosis, or significant laboratory abnormalities. Imaging with CXR, CT of the Head, and CT Angio of the chest were all negative for any acute findings. Her troponin briefly became elevated in the equivocal range at 0.12 prior to normalizing. No other events reported. She was maintained on telemetry throughout the entirety of her hospitalization without any abnormal rhythms. She is at her baseline mental status currently. Hospital Course: (1) Altered Consciousness: Unclear etiology for what appears to have been a Transient Loss of Consciousness with potential brief period of seizure activity following. Currently without evidence of infection, and likely not orthostatic in nature. Discussed case in detail with Neurology at [facility]. Given history patient's symptoms may represent a Syncopal episode with an Impact Seizure due to striking her head, which according to the was quite 'hard'. However, cannot rule out a convulsive syncope or other etiology. Given minimal and equivocal elevation in troponin, symptoms may have represented a transient cardiac arrhythmia as well, manifesting with slight confusion from hypoperfusion prior to the event, with syncope at attempt on standing and potential seizure activity due to lack of perfusion of the brain following the event. Patient was maintained on telemetry without any abnormalities - noted to be in sinus rhythm without PACs, PVCs, pauses, or arrhythmias. Unfortunately as it is the weekend work-up was quite limited. - As per neurology conversation patient is deemed safe for discharge, with timely work-up to include MRI of the brain, EEG, and ECHO, which can all be acquired as an outpatient. Although ACS is less likely will also recommend stress testing given minimal and equivocal elevation in troponin. (2) Elevated troponin: Minimal and equivocal elevation which has completely normalized without intervention. Doubt NSTEMI. May be on basis of arrhythmia given above history, but given EKG findings cannot rule out underlying CAD. Will recommend outpatient ischemic work-up. Continue ASA, statin. (3) Hypertension: Continue CCB, ARB/HCTZ at time of discharge. (4) Anxiety: Continue SSRI therapy, low dose Klonopin. (5) Diabetes Metformin to resume at discharge. (6) Splenic Artery Aneurysm CT findings of a small rounded calcified structure in the splenic hilum that likely represents a calcified splenic artery aneurysm - measures 1.0 cm. As this is an asymptomatic Splenic Artery aneurysm measuring less than 2 cm recommend surveillance and routine monitoring over time. Home Meds and New Rx's Prescriptions: Continue clonazepam 0.5 mg Tablet 0.25 mg PO .QHS RF: 0 lovastatin 40 mg Tablet 40 mg PO DAILY RF: 0 amlodipine 5 mg Tablet 5 mg PO DAILY RF: 0 aspirin [Aspirin Low Dose] 81 mg Tablet,Delayed Release (Dr/Ec) 81 mg PO DAILY RF: 0 ferrous sulfate 325 mg (65 mg iron) Tablet 325 mg PO DAILY RF: 0 metformin 1,000 mg Tablet 1,000 mg PO BID RF: 0 irbesartan-hydrochlorothiazide 300-12.5 mg Tablet 1 tab PO DAILY RF: 0 folic acid 1 mg Tablet 1 mg PO DAILY RF: 0 escitalopram oxalate 10 mg Tablet 5 mg PO DAILY RF: 0 levothyroxine 100 mcg Capsule 100 mcg PO DAILY RF: 0 Discharge Instructions Additional Instructions: Please see your Primary Care Doctor in 1 week. You may consider seeing a neurologist as well. Some tests were ordered for you - these include an MRI of your brain, and ultrasound of your heart, a monitor of your heart, and EEG, and a stress test. Activity:: No Strenuous Activity. Please refrain from driving until cleared by your doctor. Equipment/Supplies:: No Equipment Needed Diet:: As Tolerated Discharge Orders Discharge Orders: Discharge Order (Routine); Ordered 05/01/18 Ordered By: Donaldo Duff Other Ambulatory Orders: EEG (Outpt) (ONCE) (1) Timeframe: 1 Week Location: Determined by Patient Ordered By: Donaldo Duff Nuclear Medicine Stress Test (Outpt) (ONCE) (1) Timeframe: 1 Week Location: Determined by Patient Ordered By: Donaldo Duff MR brain wo (Routine) Timeframe: 1 Week Location: Determined by Patient Ordered By: Donaldo Duff MR brain wo/w (Routine) Location: Determined by Patient Ordered By: Donaldo Duff US echocardiogram (Routine) Timeframe: 1 Week Location: Determined by Patient Ordered By: Donaldo Duff DS: Data Vitals/I&O Vitals and I&O: Vital Signs Temperature 37.0 C 05/01/18 07:55 Temperature Source Tympanic 05/01/18 07:55 Pulse 61 05/01/18 07:55 Pulse Rhythm Regular 04/30/18 21:59 Pulse 76 04/29/18 22:31 Respiratory Rate 16 05/01/18 07:55 Respiratory Effort Non-Labored 04/30/18 21:59 Respiratory Depth Normal 04/30/18 21:59 Respiratory Pattern Normal 04/30/18 21:59 Blood Pressure 134/60 05/01/18 07:55 Blood Pressure Mean 74 04/29/18 22:31 Blood Pressure Position Sitting 04/29/18 19:12 Pulse Oximetry 96 05/01/18 07:55 Oxygen Delivery Method Room Air 05/01/18 07:55 Oxygen Flow Rate 0 05/01/18 07:55 Pain Level 0 05/01/18 07:55 Intake & Output 04/30/18 04/30/18 05/01/18 11:59 23:59 11:59 Intake Total 120 / 120 730 / 730 480 / 480 Output Total 2100 / 2100 1200 / 1200 400 / 400 Balance -1980 / -1980 -470 / -470 80 / 80 Intake: Oral 120 / 120 730 / 730 480 / 480 Output: Urine 2100 / 2100 1200 / 1200 400 / 400 Other: Urine Color Yellow Yellow Light Pau Urine Appearance Clear Clear Clear Urine Odor Normal Voiding Methods Toilet Toilet Toilet Completed studies during hospitalization [Text1]: EXAM: XR Chest, 2 Views EXAM DATE/TIME: 04/29/2018 7:23 PM CLINICAL HISTORY: 72 years old, female; Signs and symptoms; Other: Sycope; Patient HX: ? Syncope TECHNIQUE: XR of the chest, 2 views. COMPARISON: No relevant prior studies available. FINDINGS: Lungs: Unremarkable. No consolidation. Pleural space: Unremarkable. No pleural effusion. No pneumothorax. Heart/Mediastinum: Unremarkable. No cardiomegaly. Bones/joints: Unremarkable. IMPRESSION: No acute cardiopulmonary findings. EXAM: CT Head Without Contrast EXAM DATE/TIME: 04/29/2018 7:32 PM CLINICAL HISTORY: 72 years old, female; Injury or trauma; Fall; Initial encounter; Sprain or strain; Sprain or strain, cervical ligaments; Patient HX: Trauma, seizure vs. Syncope. TECHNIQUE: Axial computed tomography images of the head/brain without contrast. All CT scans at this facility use at least one of these dose optimization techniques: automated exposure control; mA and/or kV adjustment per patient size (includes targeted exams where dose is matched to clinical indication); or iterative reconstruction. Coronal and sagittal reformatted images were created and reviewed. COMPARISON: No relevant prior studies available. FINDINGS: Brain: Mild prominence of the CSF spaces and sulci in keeping with mild age-related involutional changes. Nonspecific patchy and confluent periventricular white matter changes, likely related to chronic microvascular ischemic disease. No intracranial hemorrhage, mass effect, or midline shift. No evidence of large territorial infarction. Right occipital scalp swelling without underlying skull fracture. Bilateral maxillary sinus and mild frontal sinus mucosal thickening. Ventricles: Normal. No ventriculomegaly. Bones/joints: See Brain Finding. Sinuses: See Brain Finding. Mastoid air cells: Normal as visualized. No mastoid effusion. Soft tissues: Normal. IMPRESSION: 1. No acute intracranial findings. 2. Right occipital scalp swelling without underlying skull fracture. 3. Mild age-related involutional changes. Nonspecific white matter changes, likely related to chronic microvascular ischemic disease. 4. Mild paranasal sinus disease. EXAM: CT Angiography Chest With Contrast EXAM DATE/TIME: 04/29/2018 9:03 PM CLINICAL HISTORY: 72 years old, female; Abnormal findings; Abnormal diagnostic tests; Elevated d-dimer TECHNIQUE: Axial computed tomographic angiography images of the chest with intravenous contrast using CT angiography protocol. All CT scans at this facility use at least one of these dose optimization techniques: automated exposure control; mA and/or kV adjustment per patient size (includes targeted exams where dose is matched to clinical indication); or iterative reconstruction. Coronal and sagittal reformatted images were created and reviewed. MIP reconstructed images were created and reviewed. CONTRAST: 74 ml of OMNI-PAQUE 350 administered intravenously. COMPARISON: CR XR CHEST 2V PA LATERAL 04/29/2018 8:02 PM FINDINGS: Pulmonary arteries: See Adrenals Finding. Aorta: Mild atherosclerotic calcification of the aorta. Other arteries: Small rounded calcified structure in the splenic hilum likely represents a calcified splenic artery aneurysm measuring 1.0 cm (series 5 image 98). Lungs: No focal pulmonary consolidation. Pleural space: Normal. No pneumothorax. No pleural effusion. Heart: Normal heart size without pericardial effusion. There are coronary artery calcifications. Gallbladder and bile ducts: Cholelithiasis. No gallbladder wall thickening or pericholecystic fluid. Adrenals: Mild nodular thickening of the medial limb of the left adrenal gland without discrete nodule. No evidence of pulmonary embolism. Lymph nodes: Scattered nonenlarged mediastinal lymph nodes. No enlarged nodes. Bones/joints: Unremarkable. No acute fracture. Soft tissues: Unremarkable. IMPRESSION: 1. No evidence of pulmonary embolism. No acute pulmonary findings. 2. Cholelithiasis without CT evidence of acute cholecystitis. 3. 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 Labs on day of discharge: Labs from last 24 hours 05/01/18 05/01/18 04/30/18 06:20 06:20 11:45 WBC 6.18 RBC 4.04 Hgb 11.4 L Hct 35.8 L MCV 88.6 MCH 28.2 MCHC 31.8 L RDW 13.2 Plt Count 274 MPV 9.3 Immature Gran % 0.2 Neutrophils % 57.1 Lymphocytes % 30.7 Monocytes % 9.4 Eosinophils % 1.8 Basophils % 0.8 Absolute Neutrophils 3.53 Absolute Lymphocytes 1.90 Absolute Monocytes 0.58 Absolute Eosinophils 0.11 Absolute Basophils 0.05 Sodium 140 Potassium 4.1 Chloride 104 Carbon Dioxide 26.9 Anion Gap 9.1 BUN 15 Creatinine 1.03 H Estimated GFR/1.73 m2 52.67 Glucose 156 H Calcium 8.7 Magnesium 1.9 Troponin I 0.04 PFSH Diabetes (Chronic) Medical History Diabetes (Chronic) Social History Smoking/Tobacco Use Status: Never alcohol intake: current alcohol intake frequency: holidays/special occasions only Social History Smoking/Tobacco Use Status: Never alcohol intake: current alcohol intake frequency: holidays/special occasions only
[2018-05-01 12:11] VITALS: PULSE 68
--- NOTE | 2018-05-27 09:52 | ZIOP_ITS ---
DATE OF DICTATION: May 27, 2018 INDICATIONS: Syncope ANALYSIS TIME: 13 days and 21 hours. Predominant underlying rhythm is sinus rhythm. Average heart rates 71 bpm, minimum heart rate 49 bpm, maximum heart rate 179 bpm. One short burst of non-sustained VT lasting 7 beats. 84 episodes of SVT. The fastest interval lasting 7 beats with a max rate of 179 bpm. The longest run of SVT lasting 32 minutes and 14 seconds appears to be in atrial ectopic rhythm with an average heart rate of 101 bpm. Occasional isolated atrial ectopy. Otherwise rare isolated ventricular ectopy. No significant pauses or bradyarrhythmias. One patient-triggered event corresponds to sinus rhythm with PAC's. No diary entries.
== END 2018-05-01 13:30 | disposition home or self-care (01) ==
LOC: ER 23:01 → MS 04-30 07:37
PROVIDERS: Nurse Practitioner Acute Care; Admitting Provider General Practice; Emergency Provider Student in an Organized Health Care Education/Training Program; Visit Provider Internal Medicine
DX: R40.4 Transient alteration of awareness (principal); R74.8 Abnormal levels of other serum enzymes; I10 Essential (primary) hypertension; F41.8 Other specified anxiety disorders; E11.9 Type 2 diabetes mellitus without complications; Z79.84 Long term (current) use of oral hypoglycemic drugs; I72.8 Aneurysm of other specified arteries
CPT/HCPCS: 36415; 71275; 80048; 80053; 93005; 93225; 99222; 99233; 99239; 99285; J1650; 70450; 71046; 72125; 81003; 81015; 83735; 84132; 84443; 84484; 85025; 85379; 87086; 93010; 99217; 99219; 99226; G0378; J3490

== ENCOUNTER 2018-05-27 08:46 | Outpatient (CLI) | payer MEDICARE, SELFPAY | END 2018-05-27 09:06 | PROVIDERS: Referring Provider Internal Medicine; Visit Provider Internal Medicine Cardiovascular Disease | DX: R55 Syncope and collapse (principal); I47.1 Supraventricular tachycardia | CPT/HCPCS: 0298T ==